=== PATIENT | male | born 1955 ===

== ENCOUNTER 2018-04-16 12:09 | Day surgery (SDC) | payer BC ==
[~2018-04-16] VITALS: Ht 175.3 cm; Wt 81.3 kg
[2018-04-16] MEDS ORDERED: NATURAL E400 IU PO (12:35)
[2018-04-16] MEDS ORDERED: MULTI VITAMINS1 TAB PO (12:35)
[2018-04-16] MEDS ORDERED: TURMERIC500 MG PO (12:36)
[2018-04-16] MEDS ORDERED: VITAMIN C500 MG PO (12:36)
[2018-04-16] MEDS ORDERED: NATURAL MAGNES200 MG PO (12:37)
[2018-04-16] MEDS ORDERED: MSM500 MG PO (12:38)
[2018-04-16] MEDS ORDERED: GLUCOSAMINE 1000 PO (12:38)
[2018-04-16] MEDS ORDERED: MAGNESIUM PO (12:39)
[2018-04-16] MEDS ORDERED: TURMERIC PO (12:40)
[2018-04-16] MEDS ORDERED: METHYLSULFONYLMETHAN PO (12:41)
[2018-04-16] MEDS ORDERED: BOSWELLIA PO (12:41)
[2018-04-16] MEDS ORDERED: PHARMASSURE GA500 MG PO (12:41)
[2018-04-16] MEDS ORDERED: ARMOUR THYROID60 MG PO (12:42)
[2018-04-16] MEDS ORDERED: CO Q-10 PO (12:42)
[2018-04-16 12:43] VITALS: BP 173/98; PULSE 72; TEMP 98.4
[2018-04-16 16:40] VITALS: BP 137/81; PULSE 76; TEMP 97
[2018-04-16 16:55] VITALS: BP 141/81; PULSE 78
[2018-04-16 17:10] VITALS: BP 140/85; PULSE 73
[2018-04-16 18:11] VITALS: BP 140/88; PULSE 74; TEMP 97.1
== END 2018-04-16 17:30 | disposition home or self-care (01) ==
LOC: SDCO 12:09
DX: K40.20 Bilateral inguinal hernia, without obstruction or gangrene, not specified as recurrent (principal); E03.9 Hypothyroidism, unspecified; I10 Essential (primary) hypertension
CPT/HCPCS: A4314; C1781; J0690; J1100; J2250; J2405; J2704; J2765; J3010; J7120